=== PATIENT | female | born 1945 | race Hispanic/Latino ===

== ENCOUNTER → 2024-07-24 | Outpatient (CLI) | payer MEDICARE ==
[~2024-07-24] MED LIST: REGADENOSON 0.4 MG/5 ML PF SYG IVP ONE
--- NOTE | 2024-07-30 14:33 | HMCSR ---
APPROVED REPORT Height: 5 ft 2in Weight: 120 lbs TEST INDICATIONS SHORTNESS OF BREATH The imaging protocol used to acquire images was Rest Tc-99m/stress Tc-99m 1 day Consent: The procedure was explained and understood by the patient. Informerd consent was witnessed Ana Maria PIZARRO RN First, low dose rest was performed then high dose stress. RESTING DATA: The resting ekg shows: NSR Rest SPECT myocardial perfusion imaging was performed in supine position minutes following the intra venous injection of 12 mCi of Tc-99 Sestamibi. Time of rest injection: 09:05: Date: 07/24/2024 PHARMACOLOGIC STRESS: Pharmacologic stress test was performed by injecting regadenoson 0.4 mg IV push followed by the intra venous injection of 28.5 mCi of Tc-99 Sestamibi. Time of stress injection: 10:43: Date: 07/24/2024 Heart Rate at time of stress injection: 48 bpm. The images were gated to evaluate regional wall motion and calculate left ventricular ejection fracti on. STRESS DETAILS Reason for Termination: Infusion complete Stress Symptoms: Dyspnea Max HR Achieved: 70 bpm % of APMHR Achieved: 57 Max Blood Pressure: 131/54 mmHg Stress ECG: NSR Study quality was good. Lung uptake was Normal. LEFT VENTRICLE The left ventricular ejection fraction was calculated to be 70%.TID = . LV PERFUSION The rest and stress images show normal perfusion. IMPRESSION Equivocally normalNormal pharmacologic nuclear stress test. Conclusion Normal pharmacologic nuclear stress test. NO ischemia NO infarct
== END | disposition home or self-care (01) ==
LOC: RAH 08:52
PROVIDERS: ATTEND Internal Medicine Cardiovascular Disease
DX: R06.02 Shortness of breath (principal)
CPT/HCPCS: 78452; 93017; J2785; A9500 ×2